=== PATIENT | male | born 1960 | race Caucasian/White ===

== ENCOUNTER 2020-07-24 10:23 | Outpatient (CLI) | payer BC, OTHER ==
[2020-07-24 11:27] LABS: BASOPHILS % (AUTO) 1 % (0-1); EOSINOPHILS % (AUTO) 2 % (1-7); LYMPHOCYTES % (AUTO) 30 % (22-44); MEAN CORPUSCULAR HGB CONC 34.3 g/dL (33.2-36.2); MEAN PLATELET VOLUME 8.8 fL (7.4-10.4); MONOCYTES % (AUTO) 9 % (2-9); NEUTROPHILS % (AUTO) 58 % (42-75); PLATELET COUNT 167 x10^3/uL (130-400); RED BLOOD COUNT 5.51 x10^6/uL (4.38-5.82); RED CELL DISTRIBUTION WIDTH 13.4 % (9.4-14.8)
[2020-07-24 11:28] LABS: MD NO
[2020-07-24 11:37] LABS: ALANINE AMINOTRANSFERASE 24 U/L (12-78); ALBUMIN 4.1 g/dL (3.4-5.0); CALCIUM 9.2 mg/dL (8.5-10.1); CHLORIDE 107 mmol/L (98-107); CREATININE 0.91 mg/dL (0.7-1.3)
[2020-07-24 11:39] LABS: INTERNATIONAL NORMALIZED RATIO 1.07 (0.93-1.1); PROTHROMBIN TIME 11.4 Seconds (9.6-11.5)
[2020-07-24 11:43] LABS: ALKALINE PHOSPHATASE 76 U/L (45-117); ANION GAP 6 mmol/L (5-15); BILIRUBIN,TOTAL 0.5 mg/dL (0.2-1.0); TOTAL PROTEIN 7.7 g/dL (6.4-8.2)
== END 2020-07-24 23:59 | disposition home or self-care (01) ==
LOC: STAR 10:23
PROVIDERS: ATTEND Neurological Surgery
DX: Z01.812 Encounter for preprocedural laboratory examination (principal); Z20.822 Contact with and (suspected) exposure to COVID-19; M48.02 Spinal stenosis, cervical region
CPT/HCPCS: 36415; 71046; 80053; 85025; 85610; 85730; 93005; U0003

== ENCOUNTER 2020-07-30 05:28 | Day surgery (SDC) | payer BC, OTHER ==
[~2020-07-30] VITALS: Ht 182.9 cm; Wt 87.0 kg
[2020-07-30] MEDS ORDERED: LACTATED RINGERS 1,000 ML IV SCH (06:30)
[2020-07-30] MEDS ORDERED: CHLORHEXIDINE 15 ML UDC PO ONE (06:30)
[2020-07-30] MEDS ORDERED: EPINEPHRINE 1 MG/ML, 1ML ONE (07:06)
[2020-07-30] MEDS ORDERED: BUPIVACAINE/PF 0.5% ONE (07:06)
[2020-07-30] MEDS ORDERED: BACITRACIN 50,000 UNIT ONE (07:06)
[2020-07-30] MEDS ORDERED: THROMBIN 20,000 UNIT VIAL TP ONE (07:06)
[2020-07-30] MEDS ORDERED: MIDAZOLAM 1 MG/ML, 2ML ONE (07:18)
[2020-07-30] MEDS ORDERED: ONDANSETRON 2MG/ML, 2ML ONE (07:32)
[2020-07-30] MEDS ORDERED: SUCCINYLCHOLINE 20 MG/ML, 10ML ONE (07:32)
[2020-07-30] MEDS ORDERED: PROPOFOL 10 MG/ML, 20ML ONE (07:32)
[2020-07-30] MEDS ORDERED: CEFAZOLIN 1,000 MG ONE (07:32)
[2020-07-30] MEDS ORDERED: DEXAMETHASONE 4 MG/ML, 5ML ONE (07:32)
[2020-07-30] MEDS ORDERED: methylPREDNISolone SOD SUCC 40 MG/ML IV ONE (08:00)
[2020-07-30] MEDS ORDERED: DIAZEPAM 5 MG/ML, 2ML IV PRN ×2 (09:30)
[2020-07-30] MEDS ORDERED: METOCLOPRAMIDE 5 MG/ML, 2ML IV PRN (09:30)
[2020-07-30] MEDS ORDERED: PROMETHAZINE 25 MG/ML, 1ML IV PRN (09:30)
[2020-07-30] MEDS ORDERED: HYDROmorphone 1 MG/ML, 1ML INJ IV PRN (09:30)
[2020-07-30] MEDS ORDERED: LABETALOL 5MG/ML, 20ML IV PRN ×2 (09:30→11:40)
[2020-07-30] MEDS ORDERED: hydrALAzine 20 MG/ML, 1ML IV PRN (09:30)
[2020-07-30] MEDS ORDERED: OXYcodone 5 MG/5 ML ORAL.SOL UDC PO PRN (09:30)
[2020-07-30] MEDS ORDERED: ONDANSETRON 2MG/ML, 2ML IVPush PRN (09:30)
[2020-07-30] MEDS ORDERED: FENTANYL PF 250 MCG/5ML ONE (09:30)
[2020-07-30] MEDS ORDERED: MEPERIDINE/PF 25MG/0.5ML IVPush PRN (09:30)
[2020-07-30] MEDS ORDERED: ALBUTEROL SULFATE 2.5 MG/3 ML NPPB PRN (09:30)
[2020-07-30] MEDS ORDERED: FENTANYL PF 100 MCG/2ML ONE ×2 (10:07→10:16)
[2020-07-30] MEDS ORDERED: OXYcodone 5 MG/5 ML ORAL.SOL UDC ONE ×2 (10:08→10:15)
[2020-07-30] MEDS ORDERED: KETOROLAC 30 MG/1 ML ONE (10:08)
[2020-07-30] MEDS: FENTANYL PF 100 MCG/2ML IV PRN ×5 (10:10→10:41)
[2020-07-30] MEDS: KETOROLAC 30 MG/1 ML IV PRN (10:12)
[2020-07-30] MEDS ORDERED: ACETAMINOPHEN 650 MG/20.3 ML UDC ONE (10:16)
[2020-07-30] MEDS ORDERED: methylPREDNISolone*ACETATE* 80 MG/ML IM ONE (10:30)
[2020-07-30] MEDS ORDERED: hydrALAzine 20 MG/ML, 1ML ONE (10:43)
[2020-07-30] MEDS ORDERED: LABETALOL 5MG/ML, 20ML ONE (11:35)
== END 2020-07-30 12:30 | disposition home or self-care (01) ==
LOC: OUT 05:28
PROVIDERS: ATTEND Neurological Surgery
DX: M50.022 Cervical disc disorder at C5-C6 level with myelopathy (principal); M50.122 Cervical disc disorder at C5-C6 level with radiculopathy; M48.02 Spinal stenosis, cervical region; M25.78 Osteophyte, vertebrae; Z79.899 Other long term (current) drug therapy; Z98.890 Other specified postprocedural states
CPT/HCPCS: 22856; 22858; 36415; 72040; 86850; 86900; 95938; 95941; C1776; J0171; J0330; J0690; J1040; J1100; J1885; J2250; J2405; J2704; J2920; J3010; J7120